=== PATIENT | male | born 1975 ===

== ENCOUNTER 2017-09-07 15:54 | Emergency (ER) | payer OTHER ==
[2017-09-07] MEDS ORDERED: Sodium Chloride 0.9% 2.5 ML Syringe FLUSH PRN ×2 (15:55)
[2017-09-07] MEDS ORDERED: Sodium Chloride 0.9% 1,000 ML IV ONE (15:55)
[2017-09-07] MEDS ORDERED: Succinylcholine 200 MG/10 ML MDV IV ONE (15:55)
[2017-09-07] MEDS ORDERED: Sodium Chloride 0.9% 10 ML Syringe FLUSH PRN ×2 (15:55)
[2017-09-07] MEDS ORDERED: Ondansetron 4 MG/2 ML SDV IVPUSH ONE (16:04)
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
[2017-09-07] MEDS ORDERED: Ondansetron 4 MG/2 ML SDV ONE (16:05)
[2017-09-07] MEDS ORDERED: LORazepam 2 MG/ML SDV IVPUSH ONE (16:09)
[2017-09-07] MEDS ORDERED: LORazepam 2 MG/ML SDV ONE (16:09)
[2017-09-07] MEDS ORDERED: Propofol 200 MG/20 ML SDV ONE (16:27)
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
[2017-09-07] MEDS ORDERED: Ketamine 500 mg/10 ML MDV ONE (16:42)
[2017-09-07] MEDS ORDERED: Midazolam 1 MG/ML 2 ML SDV ONE (16:57)
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
[2017-09-07] MEDS ORDERED: Midazolam 1 MG/ML 2 ML SDV IVPUSH ONE (17:46)
[2017-09-07] MEDS ORDERED: Lactated Ringers 1,000 ML IV ONE (17:46)
[2017-09-07] MEDS ORDERED: Rocuronium 100 MG/10 ML Syringe IVPUSH ONE (17:47)
[2017-09-07] MEDS ORDERED: Ketamine 500 mg/10 ML MDV IV ONE (17:47)
[2017-09-07] MEDS ORDERED: Propofol 200 MG/20 ML SDV IVPUSH ONE (17:48)
[2017-09-07 18:29] LABS: CHLORIDE,CL 86 mmol/L (98-107)
[2017-09-07 18:30] LABS: SODIUM,NA 120 mmol/L (136-148)
--- NOTE | 2017-09-08 10:27 | CR ---
EXAM DATE: 09/07/17 PATIENT'S AGE: 41 Patient: TYSON STROUD Facility: [place], [place] Site . Site : [id number] Study: XRay Chest [id number]/12/2018 4:53:40 PM Ordering Physician: Doctor Claire Final Report: INDICATION: Post intubation. TECHNIQUE: Chest radiograph 1 view COMPARISON: 09/07/2017 at 4 p.m. FINDINGS: Current portable AP supine chest dated 09/07/2017 at 4:40 p.m. Interval placement of endotracheal tube, tip 8.0 centimeters above the kirk at approximately the T2 level. Interval placement of nasogastric tube, tip curled in the proximal stomach. Tip projects just inferior to the GE junction. Lung markings are stable. Heart and mediastinal contours within normal limits. No pneumothorax or blunting of costophrenic sulci. Likely old fracture deformity involving the mid left clavicle. IMPRESSION: 1. Interval placement of endotracheal and nasogastric tubes. Dictated by Ki Bello MD @ 09/07/2017 5:05:52 PM Dictated by: Ki Bello MD @ 09/07/2017 17:06:02 (Electronic Signature) Report Signed by Proxy. FROILAN
== END 2017-09-07 17:09 ==
LOC: EDBD 15:54 → MW.ED 15:54
DX: R41.0 Disorientation, unspecified (principal); V89.2XXA Person injured in unspecified motor-vehicle accident, traffic, initial encounter
CPT/HCPCS: 36415; 70450; 71045; 72125; 72170; 80053; 80305; 81001; 82150; 83690; 85025; 85610; 86850; 86900; 86901; 96360; 96361; 96374; 96375; 99291; 99292; G0480; J0330; J1953; J2060; J2250; J2405; J7040; J7060; J7120; 99285; J2704